=== PATIENT | male | born 1935 | race Caucasian/White ===

== ENCOUNTER 2019-02-04 15:34 | Inpatient (IN) | payer MEDICARE, OTHER ==
[~2019-02-04] VITALS: Ht 167.6 cm; Wt 83.9 kg
--- NOTE | 2019-02-04 15:42 | Emergency Room Report ---
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 And sent to the emergency room upon arrival Patient is found to be severely bradycardic Denies any chest pain or shortness of breath denies any back or flank pain he feels that when he ambulates or stands up the symptoms are worse have been slowly worsening for the past 2 weeks Allergies: Coded Allergies: No Known Allergies (Unverified , 02/04/19) Patient History Past Medical History: see triage record Reviewed Nursing Documentation: PMH: Agreed; PSxH: Agreed Nursing Documentation-PMH Hx Cardiac Problems: Yes - A-fib chronic Review of Systems All Other Systems: negative except mentioned in HPI Physical Exam Vital Signs Date Time Temp Pulse Resp B/P (MAP) Pulse Ox O2 Delivery O2 Flow Rate FiO2 02/04/19 15:21 98.2 40 18 152/72 (98) 98 Room Air Sp02 EP Interpretation: reviewed, normal General Appearance: no apparent distress Head: normocephalic, atraumatic Eyes: bilateral eye PERRL, bilateral eye EOMI ENT: hearing grossly normal, normal pharynx, TMs + canals normal, uvula midline Neck: full range of motion, supple, no meningismus, no bony tend Respiratory: lungs clear, normal breath sounds, no rhonchi, no respiratory distress, no retraction, no accessory muscle use Cardiovascular #1: normal peripheral pulses, no edema, no murmur, bradycardia Gastrointestinal: normal bowel sounds, non tender, soft, no mass, no organomegaly, non-distended, no guarding, no hernia, no pulsatile mass, no rebound Genitourinary: no CVA tenderness Musculoskeletal: normal inspection Neurologic: motor strength/tone normal, 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 tested, oriented x3 , sensory intact, responsive Psychiatric: mood/affect normal Skin: no rash Lymphatic: normal inspection, no adenopathy Procedures Critical Care Time Critical Care Time 40 minutes for multiple re-evaluations dangerously bradycardic heart rate concerning for life-threatening process not including any procedural time Medical Decision Making Diagnostic Impression: Primary Impression: Bradycardia Additional Impressions: Dizziness Sick sinus syndrome ER Course Patient is a fairly complex patient with multiple differential to consideration including but not limited to cardiac cardiopulmonary and vascular emergencies Patient remains awake and alert blood pressure remains appropriate and discussion with cardiology They recommend not providing any further medication at this time Patient further hydrated and admitted inpatient status Labs Test 02/04/19 15:52 White Blood Count 6.5 K/UL (4.8-10.8) Red Blood Count 4.76 M/UL (4.70-6.10) Hemoglobin 14.9 G/DL (14.2-18.0) Hematocrit 42.3 % (42.0-52.0) Mean Corpuscular Volume 89 FL (80-99) Mean Corpuscular Hemoglobin 31.4 PG (27.0-31.0) Mean Corpuscular Hemoglobin Concent 35.3 G/DL (32.0-36.0) Red Cell Distribution Width 11.0 % (11.6-14.8) Platelet Count 168 K/UL (150-450) Mean Platelet Volume 6.4 FL (6.5-10.1) Neutrophils (%) (Auto) 64.3 % (45.0-75.0) Lymphocytes (%) (Auto) 21.6 % (20.0-45.0) Monocytes (%) (Auto) 7.1 % (1.0-10.0) Eosinophils (%) (Auto) 4.7 % (0.0-3.0) Basophils (%) (Auto) 2.3 % (0.0-2.0) Prothrombin Time 12.0 SEC (9.30-11.50) Prothromb Time International Ratio 1.1 (0.9-1.1) Activated Partial Thromboplast Time 27 SEC (23-33) Sodium Level 141 MMOL/L (136-145) Potassium Level 4.2 MMOL/L (3.5-5.1) Chloride Level 108 MMOL/L (98-107) Carbon Dioxide Level 26 MMOL/L (21-32) Anion Gap 7 mmol/L (5-15) Blood Urea Nitrogen 36 mg/dL (7-18) Creatinine 2.0 MG/DL (0.55-1.30) Estimat Glomerular Filtration Rate mL/min (>60) Glucose Level 86 MG/DL (74-106) Calcium Level 8.9 MG/DL (8.5-10.1) Total Bilirubin 1.7 MG/DL (0.2-1.0) Direct Bilirubin 0.3 MG/DL (0.0-0.3) Aspartate Amino Transf (AST/SGOT) 30 U/L (15-37) Alanine Aminotransferase (ALT/SGPT) 55 U/L (12-78) Alkaline Phosphatase 51 U/L (46-116) Troponin I 0.025 ng/mL (0.000-0.056) Pro-B-Type Natriuretic Peptide 3043 pg/mL (0-125) Total Protein 6.8 G/DL (6.4-8.2) Albumin 3.4 G/DL (3.4-5.0) Globulin 3.4 g/dL Albumin/Globulin Ratio 1.0 (1.0-2.7) Lipase 133 U/L (73-393) EKG Diagnostic Results Rate: bradycardiac Rhythm: other - A. fib ST Segments: other - Nonspecific ST and T wave changes Rhythm Strip Diag. Results EP Interpretation: yes Rate: 40 Rhythm: no PVC's, no ectopy, other - Irregularly irregular Chest X-Ray Diagnostic Results Chest X-Ray Diagnostic Results : Chest X-Ray Ordered: Yes # of Views/Limited/Complete: 1 View Indication: Chest Pain EP Interpretation: Yes Interpretation: no consolidation, no effusion, no pneumothorax Impression: No acute disease Electronically Signed by: Sander Qureshi DO Last Vital Signs Date Time Temp Pulse Resp B/P (MAP) Pulse Ox O2 Delivery O2 Flow Rate FiO2 02/04/19 15:21 98.2 40 18 152/72 (98) 98 Room Air Status: improved Disposition: ADMITTED INPATIENT Condition: Critical Sander Qureshi DO Feb 04, 2019 15:42
[2019-02-04 16:04] LABS: BASOPHILS % (AUTO) 2.3 % (0.0-2.0); EOSINOPHILS % (AUTO) 4.7 % (0.0-3.0); HEMATOCRIT 42.3 % (42.0-52.0); HEMOGLOBIN 14.9 G/DL (14.2-18.0); LYMPHOCYTES % (AUTO) 21.6 % (20.0-45.0); MEAN CORPUSCULAR VOLUME 89 FL (80-99); MONOCYTES % (AUTO) 7.1 % (1.0-10.0); NEUTROPHILS % (AUTO) 64.3 % (45.0-75.0); PLATELET COUNT 168 K/UL (150-450); RED BLOOD COUNT 4.76 M/UL (4.70-6.10); WHITE BLOOD COUNT 6.5 K/UL (4.8-10.8)
[2019-02-04 16:16] LABS: ANION GAP 7 mmol/L (5-15); BLOOD UREA NITROGEN 36 mg/dL (7-18); CALCIUM 8.9 MG/DL (8.5-10.1); CARBON DIOXIDE 26 MMOL/L (21-32); CHLORIDE 108 MMOL/L (98-107); INR 1.1 (0.9-1.1); POTASSIUM 4.2 MMOL/L (3.5-5.1); SODIUM 141 MMOL/L (136-145)
[2019-02-04 16:27] LABS: ALANINE AMINOTRANSFERASE 55 U/L (12-78); ALBUMIN 3.4 G/DL (3.4-5.0); ALKALINE PHOSPHATASE 51 U/L (46-116); ASPARTATE AMINO TRANSFERASE 30 U/L (15-37); BILIRUBIN,TOTAL 1.7 MG/DL (0.2-1.0)
[2019-02-04 16:28] LABS: BILIRUBIN,DIRECT 0.3 MG/DL (0.0-0.3)
[2019-02-04 16:49] VITALS: BP 150/59
[2019-02-04 18:16] VITALS: BP 160/72
[2019-02-04] MEDS ORDERED: DUTASTERIDE MC (18:46)
[2019-02-04] MEDS ORDERED: LIDODERM700 M1 TOPIC (18:46)
[2019-02-04] MEDS ORDERED: ABILIFY2 MG ORAL (18:46)
[2019-02-04] MEDS ORDERED: PATADAY2.5 ML OP (18:46)
[2019-02-04] MEDS ORDERED: ASPIRIN81 MG ORAL (18:46)
[2019-02-04] MEDS ORDERED: VASCEPA1 GM PO (18:46)
[2019-02-04] MEDS ORDERED: AVODART0.5 MG ORAL (18:46)
[2019-02-04] MEDS ORDERED: CELEBREX200 MG ORAL (18:46)
[2019-02-04] MEDS ORDERED: ATORVASTATIN CA40 MG ORAL (18:46)
[2019-02-04] MEDS ORDERED: VESICARE5 MG ORAL (18:46)
[2019-02-04] MEDS ORDERED: ELIQUIS2.5 MG PO (18:46)
[2019-02-04] MEDS ORDERED: DONEPEZIL HCL5 M2 ORAL (18:46)
[2019-02-04] MEDS ORDERED: GABAPENTIN300 MG ORAL (18:46)
[2019-02-04 20:00] VITALS: BP 156/80
[2019-02-05] VITALS: BP 140/89
[2019-02-05] MEDS ORDERED: ELIQUIS2.5 MG PO (07:22)
[2019-02-05 07:32] LABS: INR 1.1 (0.9-1.1)
[2019-02-05] MEDS: Heparin 5000 units/ml inj SUBQ SCH ×2 (09:00→20:16)
--- NOTE | 2019-02-05 10:54 | Diagnostic Imaging Report ---
Indication: Shortness of breath, chest pain Technique: One view of the chest Comparison: none Findings: Lungs and pleural spaces are clear. The heart size is upper limits of normal. Impression: No acute process
[2019-02-05 20:00] VITALS: BP 129/48
[2019-02-05 23:56] VITALS: BP 148/80
[2019-02-06] VITALS (12 sets, daily range): BP systolic 124–163; BP diastolic 65–121
[2019-02-06] MEDS: Heparin 5000 units/ml inj SUBQ SCH (09:00)
[2019-02-06 09:41] LABS: BASOPHILS % (AUTO) 1.6 % (0.0-2.0); EOSINOPHILS % (AUTO) 5.4 % (0.0-3.0); HEMATOCRIT 46.3 % (42.0-52.0); HEMOGLOBIN 15.6 G/DL (14.2-18.0); LYMPHOCYTES % (AUTO) 20.5 % (20.0-45.0); MEAN CORPUSCULAR VOLUME 93 FL (80-99); MONOCYTES % (AUTO) 8.5 % (1.0-10.0); PLATELET COUNT 178 K/UL (150-450); RED BLOOD COUNT 4.98 M/UL (4.70-6.10); RED CELL DISTRIBUTION WIDTH 12.2 % (11.6-14.8); WHITE BLOOD COUNT 6.4 K/UL (4.8-10.8)
[2019-02-06 09:49] LABS: ANION GAP 10 mmol/L (5-15); BLOOD UREA NITROGEN 28 mg/dL (7-18); CALCIUM 8.8 MG/DL (8.5-10.1); CARBON DIOXIDE 24 MMOL/L (21-32); CHLORIDE 107 MMOL/L (98-107); CREATININE 1.7 MG/DL (0.55-1.30); POTASSIUM 4.3 MMOL/L (3.5-5.1); SODIUM 141 MMOL/L (136-145)
[2019-02-06 10:00] LABS: ALANINE AMINOTRANSFERASE 52 U/L (12-78); ALBUMIN 3.3 G/DL (3.4-5.0); ALKALINE PHOSPHATASE 52 U/L (46-116); ASPARTATE AMINO TRANSFERASE 25 U/L (15-37); BILIRUBIN,TOTAL 2.2 MG/DL (0.2-1.0)
[2019-02-06 10:04] LABS: BILIRUBIN,DIRECT 0.3 MG/DL (0.0-0.3)
--- NOTE | 2019-02-06 10:04 | Cardiology Progress Note ---
Assessment/Plan Assessment/Plan [id number] sss afib carmen not ghotten eleiquis yuet or today pacer implantation by dr dodd today nkda Objective Last 24 Hour Vital Signs Date Time Temp Pulse Resp B/P (MAP) Pulse Ox O2 Delivery O2 Flow Rate FiO2 02/06/19 08:02 33 02/06/19 08:00 Nasal Cannula 2.0 02/06/19 08:00 97.3 28 20 149/99 (116) 97 02/06/19 04:00 Room Air 02/06/19 04:00 98.0 31 20 138/75 (96) 96 02/06/19 03:47 30 02/06/19 00:00 Room Air 02/05/19 23:58 32 02/05/19 23:56 98.2 32 20 148/80 (102) 97 02/05/19 20:00 34 02/05/19 20:00 Room Air 02/05/19 20:00 98.4 36 20 129/48 (75) 97 02/05/19 16:00 33 02/05/19 16:00 Room Air 02/05/19 12:00 Room Air 02/05/19 12:00 34 Intake and Output 02/05/19 02/06/19 19:00 07:00 Intake Total 720 ml Output Total 2 ml 2 ml Balance 718 ml -2 ml Intake Oral 720 ml Output Urine Total 2 ml 2 ml Laboratory Tests Test 02/06/19 09:30 White Blood Count 6.4 K/UL (4.8-10.8) Red Blood Count 4.98 M/UL (4.70-6.10) Hemoglobin 15.6 G/DL (14.2-18.0) Hematocrit 46.3 % (42.0-52.0) Mean Corpuscular Volume 93 FL (80-99) Mean Corpuscular Hemoglobin 31.3 PG (27.0-31.0) H Mean Corpuscular Hemoglobin Concent 33.7 G/DL (32.0-36.0) Red Cell Distribution Width 12.2 % (11.6-14.8) Platelet Count 178 K/UL (150-450) Mean Platelet Volume 6.7 FL (6.5-10.1) Neutrophils (%) (Auto) 64.0 % (45.0-75.0) Lymphocytes (%) (Auto) 20.5 % (20.0-45.0) Monocytes (%) (Auto) 8.5 % (1.0-10.0) Eosinophils (%) (Auto) 5.4 % (0.0-3.0) H Basophils (%) (Auto) 1.6 % (0.0-2.0) Activated Partial Thromboplast Time 29 SEC (23-33) Sodium Level 141 MMOL/L (136-145) Potassium Level 4.3 MMOL/L (3.5-5.1) Chloride Level 107 MMOL/L (98-107) Carbon Dioxide Level 24 MMOL/L (21-32) Anion Gap 10 mmol/L (5-15) Blood Urea Nitrogen 28 mg/dL (7-18) H Creatinine 1.7 MG/DL (0.55-1.30) H Estimat Glomerular Filtration Rate mL/min (>60) Glucose Level 101 MG/DL (74-106) Calcium Level 8.8 MG/DL (8.5-10.1) Total Bilirubin Pending Aspartate Amino Transf (AST/SGOT) Pending Alanine Aminotransferase (ALT/SGPT) Pending Alkaline Phosphatase Pending Total Protein Pending Albumin Pending Globulin Pending Scooby Crockett MD Feb 06, 2019 10:04
--- NOTE | 2019-02-06 11:13 | Pre-Procedure Note/Attestation ---
Pre-Procedure Note/Attestation Complete Prior to Procedure Planned Procedure: left Procedure Narrative: permanent pacemaker implant Indications for Procedure Pre-Operative Diagnosis: high grade AV block, permanent AF Attestation I attest that I discussed the nature of the procedure; its benefits; risks and complications; and alternatives (and the risks and benefits of such alternatives ), prior to the procedure, with the patient (or the patient's legal territory sales representative). I attest that, if there was a reasonable possibility of needing a blood transfusion, the patient (or the patient's legal territory sales representative) was given the [facility] standardized written summary, pursuant to the Alfonso Gibbon Blood Safety Act ([place] Health and Safety Code # 1645, as amended). I attest that I re-evaluated the patient just prior to the surgery and that there has been no change in the patient's H&P, except as documented below: Ophelia Solomon MD Feb 06, 2019 11:13
--- NOTE | 2019-02-06 11:19 | Consultation ---
Consult Note Consult Note Cardiac EP #[id number] Ophelia oSlomon MD Feb 06, 2019 11:19
[2019-02-06] MEDS ORDERED: Bupivacaine 0.25% Inj 30ml INJ ONE (13:00)
[2019-02-06] MEDS ORDERED: Bacitracin 50000 Units Vial ONE (13:00)
[2019-02-06] MEDS ORDERED: Isovue-M 300 15ml INJ ONE (13:00)
[2019-02-06] MEDS ORDERED: Lidocaine 1% Plain 30 ml INJ ONE ×2 (13:00→13:21)
[2019-02-06] MEDS ORDERED: LR 1000ml 1,000 ML IVLG SCH (13:16)
[2019-02-06] MEDS ORDERED: Sodium Chloride 10ml vial INJ ONE (13:21)
[2019-02-06] MEDS ORDERED: Dexamethasone 4mg/ml vial ONE (13:21)
[2019-02-06] MEDS ORDERED: Propofol 200mg/20ml IV ONE (13:21)
--- NOTE | 2019-02-06 13:26 | Anethesia Preoperative Eval ---
Anesthesia Pre-op PMH/ROS General Date of Evaluation: Feb 06, 2019 Time of Evaluation: 13:26 Anesthesiologist: Joya ASA Score: ASA 4 - Emergency Mallampati Score Class I : Soft palate, uvula, fauces, pillars visible Class II: Soft palate, uvula, fauces visible Class III: Soft palate, base of uvula visible Class IV: Only hard plate visible Mallampati Classification: Class III Surgeon: Juanito Diagnosis: Afib, Bradycardia Surgical Procedure: Permanent Pacemaker Anesthesia History: none Family History: no anesthesia problems Allergies: Coded Allergies: No Known Allergies (Unverified , 02/04/19) Medications: see eMAR Patient NPO?: Yes NPO Date: Feb 06, 2019 NPO Time: 0000 Past Medical History Cardiovascular: Reports: HTN, CAD, arrhythmia - Bradycardia Other: obesity - BMI 30 Anesthesia Pre-op Phys. Exam Physician Exam Last Vital Signs Date Time Temp Pulse Resp B/P (MAP) Pulse Ox O2 Delivery O2 Flow Rate FiO2 02/06/19 13:12 29 02/06/19 12:09 Nasal Cannula 2.0 02/06/19 12:00 97.3 20 155/68 (97) 97 Constitutional: NAD Neurologic: CN 2-12 intact Cardiovascular: RRR Respiratory: CTA Airway Exam Mallampati Score: Class III MO: limited ROM: limited Teeth: missing, intact Anesthesia Pre-op A/P Labs Hematology Test 02/06/19 09:30 White Blood Count 6.4 K/UL (4.8-10.8) Red Blood Count 4.98 M/UL (4.70-6.10) Hemoglobin 15.6 G/DL (14.2-18.0) Hematocrit 46.3 % (42.0-52.0) Mean Corpuscular Volume 93 FL (80-99) Mean Corpuscular Hemoglobin 31.3 PG (27.0-31.0) H Mean Corpuscular Hemoglobin Concent 33.7 G/DL (32.0-36.0) Red Cell Distribution Width 12.2 % (11.6-14.8) Platelet Count 178 K/UL (150-450) Mean Platelet Volume 6.7 FL (6.5-10.1) Neutrophils (%) (Auto) 64.0 % (45.0-75.0) Lymphocytes (%) (Auto) 20.5 % (20.0-45.0) Monocytes (%) (Auto) 8.5 % (1.0-10.0) Eosinophils (%) (Auto) 5.4 % (0.0-3.0) H Basophils (%) (Auto) 1.6 % (0.0-2.0) Coagulation Test 02/06/19 09:30 Activated Partial Thromboplast Time 29 SEC (23-33) Chemistry Test 02/06/19 09:30 Sodium Level 141 MMOL/L (136-145) Potassium Level 4.3 MMOL/L (3.5-5.1) Chloride Level 107 MMOL/L (98-107) Carbon Dioxide Level 24 MMOL/L (21-32) Anion Gap 10 mmol/L (5-15) Blood Urea Nitrogen 28 mg/dL (7-18) H Creatinine 1.7 MG/DL (0.55-1.30) H Estimat Glomerular Filtration Rate mL/min (>60) Glucose Level 101 MG/DL (74-106) Calcium Level 8.8 MG/DL (8.5-10.1) Total Bilirubin 2.2 MG/DL (0.2-1.0) H Direct Bilirubin 0.3 MG/DL (0.0-0.3) Aspartate Amino Transf (AST/SGOT) 25 U/L (15-37) Alanine Aminotransferase (ALT/SGPT) 52 U/L (12-78) Alkaline Phosphatase 52 U/L (46-116) Total Protein 6.7 G/DL (6.4-8.2) Albumin 3.3 G/DL (3.4-5.0) L Globulin 3.4 g/dL Albumin/Globulin Ratio 1.0 (1.0-2.7) Risk Assessment & Plan Assessment: ASA 4E Plan: TIVA Status Change Before Surgery: No Pre-Antibiotics Dru Grams Ancef IV Given Within 1 Hr of Incision: Yes Time Given: 13:46 Cristobal Hinson MD Feb 06, 2019 13:25
[2019-02-06] MEDS ORDERED: Labetalol 5mg/ml 20ml vial IV PRN ×2 (13:30→16:00)
[2019-02-06] MEDS ORDERED: LORazepam Inj 2mg/ml 1ml IV PRN (13:30)
[2019-02-06] MEDS ORDERED: Neostigmine 1mg/ml 10ml Inj ONE (13:30)
[2019-02-06] MEDS ORDERED: Midazolam 2mg/2ml Inj IVP PRN (13:30)
[2019-02-06] MEDS ORDERED: Hydromorphone 0.5mg/0.5ml inj IVP PRN (13:30)
[2019-02-06] MEDS ORDERED: DiphenhydrAMINE 50mg/ml Inj IVP PRN (13:30)
[2019-02-06] MEDS ORDERED: Acetaminophen (Non formulary) 100 ML IV ONE (13:30)
[2019-02-06] MEDS ORDERED: fentaNYL 100 mcg/2 mL IV PRN (13:30)
[2019-02-06] MEDS ORDERED: LR 1000ml ONE (13:30)
[2019-02-06] MEDS ORDERED: Rocuronium Bromide 50mg/5ml Inj IV ONE (13:30)
[2019-02-06] MEDS ORDERED: HYDROcodone/Acetamin 7.5/325 tab ORAL PRN (13:30)
[2019-02-06] MEDS ORDERED: Meperidine 50mg/ml Inj(FOR RIGORS ONLY) IVP PRN (13:30)
[2019-02-06] MEDS ORDERED: HYDROcodone/Acetamin 5/325 tab ORAL PRN ×2 (13:30→16:00)
[2019-02-06] MEDS ORDERED: Atropine Sulfate 0.4mg/ml inj IVP PRN (13:30)
[2019-02-06] MEDS ORDERED: oxyCODONE HCL/Acetaminophen 5/325mg ORAL PRN (13:30)
[2019-02-06] MEDS ORDERED: Metoclopramide 10mg/2ml Inj IVP PRN (13:30)
[2019-02-06] MEDS ORDERED: Glycopyrrolate 0.2mg/ml 1ml Vial ONE ×2 (13:47→15:07)
--- NOTE | 2019-02-06 13:52 | Cardiology Report ---
APPROVED REPORT EKG Measurement Heart [id number] <Conclusion> A. Flutter Right bundle branch block Left anterior fascicular block Bifascicular block Left ventricular hypertrophy with repolarization abnormality Abnormal ECG
[2019-02-06] MEDS ORDERED: Atropine Sulfate 0.4mg/ml inj ONE (13:53)
[2019-02-06 14:38] LABS: ANION GAP 11 mmol/L (5-15); BLOOD UREA NITROGEN 29 mg/dL (7-18); CALCIUM 8.8 MG/DL (8.5-10.1); CARBON DIOXIDE 24 MMOL/L (21-32); CHLORIDE 106 MMOL/L (98-107); CREATININE 1.9 MG/DL (0.55-1.30); POTASSIUM 4.5 MMOL/L (3.5-5.1); SODIUM 141 MMOL/L (136-145)
[2019-02-06] MEDS ORDERED: NS Irrig 1000ml IRRIG ONE (15:05)
--- NOTE | 2019-02-06 15:48 | Operative Note - PDOC ---
Operative Note Operative Note Date of Operation/Procedure: Feb 06, 2019 Pre-op Diagnosis: high grade AV block, permanent AF Procedure: permanent pacemaker - single chamber temp pacemaker and central line Post-op Diagnosis: sinus node disease and high grade av block Post-op Diagnosis: same as pre-op Operative Findings: consistent w/pre-op dx studies Anesthesiologist: Dr Hinson Anesthesia: general Specimen: none Complications: none Condition: stable Estimated Blood Loss: minimal Drains: none Implant(s) used?: Yes Indications for Procedure high grade AV block Description of Procedure dictation [id number] Ophelia Solomon MD Feb 06, 2019 15:48
--- NOTE | 2019-02-06 16:03 | Immediate Post-Op Evaluation ---
Immediate Post-Op Evalulation Immediate Post-Op Evalulation Procedure: Permanent Pacemaker Date of Evaluation: Feb 06, 2019 Time of Evaluation: 16:13 IV Fluids: 900 LR Blood Products: 0 Estimated Blood Loss: 50 Urinary Output: 0 Blood Pressure Systolic: 162 Blood Pressure Diastolic: 78 Pulse Rate: 60 Respiratory Rate: 18 O2 Sat by Pulse Oximetry: 100 Temperature (Fahrenheit): 98.4 Pain Score (1-10): 2 Nausea: No Vomiting: No Complications 0 Patient Status: awake, reacts, patent, extubated, none Hydration Status: adequate Dru Grams Ancef IV Given Within 1 Hr of Incision: Yes Time Given: 13:46 Cristobal Hinson MD Feb 06, 2019 16:03
--- NOTE | 2019-02-06 16:04 | 48 Hour Post Anesthesia Eval ---
Post Anesthesia Evaluation Procedure: Permanent Pacemaker Date of Evaluation: Feb 06, 2019 Time of Evaluation: 18:34 Blood Pressure Systolic: 147 0: 74 Pulse Rate: 60 Respiratory Rate: 18 Temperature (Fahrenheit): 98.4 O2 Sat by Pulse Oximetry: 100 Airway: patent Nausea: No Vomiting: No Pain Intensity: 2 Hydration Status: adequate Cardiopulmonary Status: Stable Mental Status/LOC: patient returned to baseline Follow-up Care/Observations: 0 Post-Anesthesia Complications: 0 Follow-up care needed: N/A Cristobal Hinson MD Feb 06, 2019 16:04
--- NOTE | 2019-02-06 17:19 | Diagnostic Imaging Report ---
EXAM: XR Chest, 1 View CLINICAL HISTORY: S/P PACER TECHNIQUE: Frontal view of the chest. COMPARISON: No relevant prior studies available. FINDINGS: Lungs: Low lung volumes with bronchovascular crowding. No consolidation, pleural effusion, or pneumothorax. Pleural space: See above. Heart: Unremarkable. No cardiomegaly. Mediastinum: Unremarkable. Bones/joints: Unremarkable. Tubes, lines and devices: New left chest pacer. IMPRESSION: 1. New left chest pacer. 2. Low lung volumes with bronchovascular crowding. 3. Otherwise no acute cardiopulmonary disease. 4. If there is continued concern, recommend frontal and lateral chest radiographs or CT.
[2019-02-06] MEDS ORDERED: Eliquis 5mg tablet ORAL SCH (18:00)
[2019-02-06] MEDS ORDERED: Lidocaine 2% Visc 15ml soln ORAL PRN (18:00)
[2019-02-06] MEDS ORDERED: Heparin 5000 units/ml inj SUBQ SCH (21:00)
--- NOTE | 2019-02-06 21:15 | Consultation ---
DATE OF CONSULTATION: 02/06/2019 CARDIAC ELECTROPHYSIOLOGY CONSULT CONSULTING PHYSICIAN: Ophelia Solomon M.D. REQUESTING PHYSICIAN: Scooby Crockett M.D. REASON FOR CONSULT: Bradycardia. HISTORY OF PRESENT ILLNESS: Mr. Stewart is an 83-year-old [place]ijani man (history obtained through a park interpreter) with a history of permanent atrial fibrillation, who was transferred to the emergency room by paramedics with complaints of dizziness and lightheadedness. He has had symptoms progressing over the two weeks prior to admission. He has no chest pains or dyspnea. He has not had ruben syncope. His pulse in the emergency room was 40, atrial fibrillation. He was admitted for further treatment. MEDICATIONS: At home, Eliquis 2.5 mg twice daily, Abilify 2 mg daily, aspirin 81 mg daily, atorvastatin 40 mg daily, Celebrex 200 mg daily, Aricept 5 mg daily, Avodart 0.5 mg daily, gabapentin 300 mg at bedtime, Vascepa 1 g daily, Lidoderm patch daily, VESIcare 5 mg daily. ALLERGIES: No known drug allergies. PAST MEDICAL HISTORY: As noted above. Also, history of hyperlipidemia. SOCIAL HISTORY: The patient is a nonsmoker and has no history of alcohol abuse. PHYSICAL EXAMINATION: VITAL SIGNS: Blood pressure is 149/99, pulse 31, irregularly irregular, respirations 20, afebrile, oxygen saturation 97% on room air. GENERAL: Alert, well-developed white male, in no acute distress. HEENT: Normocephalic and atraumatic. Pupils are equal, round, and reactive to light. Sclerae anicteric. Oral mucosa are moist. NECK: Supple. There is no jugular venous distention. LUNGS: Clear to auscultation. No respiratory distress. HEART: Irregularly irregular, bradycardic S1-S2 with no murmur or S3. ABDOMEN: Soft, nontender, obese. No palpable mass. EXTREMITIES: No cyanosis, clubbing, or edema. SKIN: No rashes or lesions. LABORATORY DATA: Hemoglobin 15.6, white blood count 6400. INR 1.1. Potassium 4.3, BUN 28, and creatinine 1.7. Troponin 0.0250. EKG showed atrial fibrillation with slow ventricular rate. Chest x-ray shows clear lung lara. No cardiomegaly. ASSESSMENT AND RECOMMENDATIONS: Mr. Stewart is an 83-year-old man with a history of permanent atrial fibrillation and hyperlipidemia, who presents with a 2-week history of progressively worsening dizziness and is found to have high-grade AV block. Heart rates in the 20s to 30s and atrial fibrillation, he does not appear with evidence for an acute coronary syndrome based on history or troponin levels or EKG. He is not on any medications, which would cause bradycardia. 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 Permanent pacemaker is recommended. This procedure was discussed with him including potential risks and benefits. He understands and wishes to proceed. The procedure will be scheduled for today. Ophelia Solomon M.D. DR: ROXANA JOB#: [id number] CC:
--- NOTE | 2019-02-06 21:15 | History and Physical Report ---
DATE OF ADMISSION: 02/04/2019 CARDIAC CONSULTATION REASON FOR EVALUATION: Management of atrial fibrillation and bradycardia. HISTORY OF PRESENT ILLNESS: This is a patient of Dr. Guthrie, who is admitted to the hospital because of weakness. He saw me in the office on night and was noted to be severely bradycardic and sent to the emergency room at [facility]. Heart rate remains in the 20s, and therefore will be having his pacemaker implantation by Dr. Solomon today. All the information from the patient was obtained from the patient directly through a Marshallese spanish medical interpreter over the phone. The patient tells me he has not really had any chest pain or shortness of breath. No PND. No orthopnea. He has been noticing over the past three weeks that he has been basically weak and dizzy and was seen and was just found out that this is related to his heart. He has been very fatigued. He has to lie down most of the time and he feels like that. He has not passed out or come close to passing out. PAST MEDICAL HISTORY: Positive for history of atrial fibrillation. According to the chart, the patient denies any diabetes, high blood pressure, high cholesterol, heart attack, cancer, stroke, hepatitis, tuberculosis, asthma, emphysema, ulcers, kidney problems, liver problems, thyroid problems, anemia, arthritis, HIV, AIDS, or blood clots, or prostate problems. He does have a history of some kind of a cyst in his kidneys. ALLERGIES: He is not allergic to any medication. SOCIAL HISTORY: He smoked up to approximately 3 years ago. He drinks alcoholic beverages, but only 3 or 4 times, decreased from 5 or 6 times a week and no drug use. REVIEW OF SYSTEMS: GASTROINTESTINAL: He denies. GENITOURINARY: He denies. PULMONARY: He denies. CONSTITUTIONAL: He denies. NEUROLOGIC: He denies. PHYSICAL EXAMINATION: GENERAL: Shows to be overweight elderly gentleman, in no respiratory distress. NECK: Supple. No jugular venous distention. LUNGS: Appear to be clear to auscultation and percussion. CARDIAC: Bradycardic, almost regular. No heaves or thrills. ABDOMEN: Soft and obese. Positive bowel sounds. EXTREMITIES: There is no edema. NEUROLOGICAL: He is awake, alert, and responsive. LABORATORY VALUES: INR 1.1 and PTT of 27. White count of 6.4, hemoglobin 15.6, and platelet count of 178,000. Sodium is 141, potassium 4.3, chloride 107, bicarb 24, BUN of 28, creatinine 1.7, and glucose of 101. Calcium is 8.8. Troponin of 0.0512. TSH of 2.276. A chest x-ray was performed on 02/04/2019 showing lungs and pleural spaces to be clear. His telemetry data shows flutter pattern, and in fact, his EKG shows flutter pattern with heart rates down to the 40s. A left anterior fascicular block is noted, may be some voltage criteria for left ventricular hypertrophy, some nonspecific T-wave abnormalities. ASSESSMENT: 1. Permanent atrial fibrillation. 2. Bradycardia suggestive of sick sinus syndrome. 3. History of tobacco use disorder. PLAN: This patient was seen and has been admitted because of the bradycardia. I have contacted Dr. Solomon, who will arrange for urgent placement of a pacemaker. I did briefly discuss the placement of the pacemaker with the patient indicating the possibility of infection, bleeding, damage to the vessels of the heart. Dr. Solomon will obtain a consent based on her own experience from the patient directly as well. The patient is NPO. She has not had any anticoagulation according to the nursing staff yesterday or today with Eliquis and we will have the procedure done today. Scooby Crockett M.D. DR: GABI JOB#: [id number] CC:
[2019-02-06] MEDS: ceFAZolin sod 1 GM in D5W 55 ML IV SCH (22:11)
[2019-02-07] VITALS (13 sets, daily range): BP systolic 133–158; BP diastolic 64–126
--- NOTE | 2019-02-07 01:00 | Operative Note - Dictated ---
DATE OF OPERATION: 02/06/2019 SURGEON: Ophelia Solomon M.D. PROCEDURE: Temporary transvenous pacemaker and permanent single-chamber pacemaker. INDICATION: Permanent atrial fibrillations and asystolic arrest. CLINICAL HISTORY: The patient is an 83-year-old man, who presented with 2-week history of dizziness. He has permanent atrial fibrillation and was found to have severe bradycardia rates in the 30s with no reversible cause identified. On anesthesia induction, he had an asystolic cardiac arrest and required external transcutaneous pacing until the temporary and permanent pacemaker was placed. ANESTHESIA: General endotracheal. The implanted pacemaker is a [employer], PM 1272, serial number [id number]. The lead is a [employer] [id number], serial number [id number] pacing and sensing in the ventricle. The sensed R waves from the temporary transvenous wire were 7 millivolts, lead impedance 540 ohms, pacing threshold 0.5 volts at 0.4 milliseconds. DESCRIPTION OF PROCEDURE: The patient was brought to the operating room, received sedation as per the anesthesiologist, Dr. Hinson. On anesthesia induction, the patient who had been significantly bradycardic in atrial fibrillation at a prolonged asystole, he was transcutaneously paced, intubated, and mechanically ventilated. We then prepped the right groin quickly and placed a 5-Maori introducer sheath and through this, a bipolar temporary pacing wire was advanced to the right ventricular apex. This was used for pacing during the permanent pacemaker insertion. The temporary wire was secured to the skin and a Tegaderm dressing applied. The left chest was then sterilely prepped and draped in the usual manner. The skin and underlying soft tissues over the left deltopectoral groove were infiltrated with 1% Xylocaine with local anesthetic. An incision was made of about 3 cm in the left deltopectoral groove and this was carried down to the prepectoral fascia using blunt and Bovie dissection. The left cephalic vein was isolated. The proximal loop and distal tie of silk suture were placed. The vein was incised and a guidewire advanced under fluoroscopy into the low right atrium. The ventricular lead was then passed directly through the vein positioned in the right ventricular apex under fluoroscopy. The screw was advanced under fluoroscopy. The above pacing and sensing thresholds were obtained. There was no diaphragmatic stimulation with pacing at 10 volts. The lead was secured with two nonabsorbable sutures to the underlying fascia via the suture sleeve. The subcutaneous pocket was created using blunt and Bovie dissection. The pocket was flushed with an antibiotic solution. The pacemaker generator was brought to the field. The ventricular lead was attached. The setscrews tightened and checked. The lead in placed into the subcutaneous pocket with the excess lead coiled beneath the generator. The incision was then closed in 3 layers with 2-0 and 4-0 Monocryl absorbable suture and a sterile dressing was applied. The generator prior to closure of the incision was anchored to the underlying fascia with an soak nonabsorbable suture. The temporary wire was removed. At the end of the procedure and the introducer as well, the patient was extubated and transferred to the recovery area in stable condition. Ophelia Solomon M.D. DR: LAURA JOB#: [id number] CC:
[2019-02-07] MEDS: ceFAZolin sod 1 GM in D5W 55 ML IV SCH (05:46)
[2019-02-07 07:01] LABS: ANION GAP 13 mmol/L (5-15); BLOOD UREA NITROGEN 31 mg/dL (7-18); CALCIUM 9.2 MG/DL (8.5-10.1); CARBON DIOXIDE 22 MMOL/L (21-32); CHLORIDE 107 MMOL/L (98-107); CREATININE 1.7 MG/DL (0.55-1.30); POTASSIUM 4.2 MMOL/L (3.5-5.1); SODIUM 142 MMOL/L (136-145)
[2019-02-07 07:03] LABS: HEMOGLOBIN 15.2 G/DL (14.2-18.0); MEAN CORPUSCULAR VOLUME 92 FL (80-99); PLATELET COUNT 186 K/UL (150-450); RED CELL DISTRIBUTION WIDTH 11.9 % (11.6-14.8); WHITE BLOOD COUNT 7.4 K/UL (4.8-10.8)
[2019-02-07] MEDS ORDERED: D5 1/2NS 1000ml IV ONE (10:45)
[2019-02-07] MEDS ORDERED: Tubing IV Secondary IV ONE (10:45)
[2019-02-07] MEDS ORDERED: NS 275ml ONE (10:45)
--- NOTE | 2019-02-07 13:42 | Cardiology Progress Note ---
Assessment/Plan Assessment/Plan 1. Permanent atrial fibrillation. 2. Bradycardia suggestive of sick sinus syndrome. 3. History of tobacco use disorder. resume eliquis dose to age adn renal function ambulate with assistance home tomorrow if ok with wlkign instructed to to allo left arm above shoulder level labs ok d/w family at bedside d/w rn d/w dr dodd interrogated device look ok Subjective Cardiovascular: Denies: chest pain, lightheadedness Respiratory: Denies: shortness of breath Gastrointestinal/Abdominal: Denies: abdominal pain Genitourinary: Denies: burning Subjective some itching at site of pacer otehrwise no sx wanst to get up to walk Objective Last 24 Hour Vital Signs Date Time Temp Pulse Resp B/P (MAP) Pulse Ox O2 Delivery O2 Flow Rate FiO2 02/07/19 12:00 97.5 61 19 138/70 (92) 98 02/07/19 12:00 Nasal Cannula 2.0 02/07/19 11:00 60 15 142/68 (92) 97 02/07/19 10:35 97.6 02/07/19 10:00 65 16 158/65 (96) 94 02/07/19 09:00 69 17 147/64 (91) 98 02/07/19 08:00 97.6 64 18 151/89 (109) 97 02/07/19 08:00 71 02/07/19 08:00 Nasal Cannula 2.0 02/07/19 07:00 57 18 136/78 (97) 93 02/07/19 06:00 56 20 138/102 (114) 94 02/07/19 05:00 57 16 157/126 (136) 97 02/07/19 04:00 98.0 59 18 153/111 (125) 98 02/07/19 04:00 Nasal Cannula 2.0 02/07/19 04:00 60 02/07/19 03:00 61 14 154/84 (107) 95 02/07/19 02:00 56 16 140/69 (92) 99 02/07/19 01:00 57 17 133/75 (94) 95 02/07/19 00:00 Nasal Cannula 2.0 02/07/19 00:00 60 02/07/19 00:00 98.0 56 14 155/105 (122) 95 02/06/19 23:00 58 16 141/121 (128) 95 02/06/19 22:00 59 18 125/100 (108) 97 02/06/19 21:00 63 17 124/65 (84) 94 02/06/19 20:00 Nasal Cannula 2.0 02/06/19 20:00 72 02/06/19 20:00 97.6 62 21 145/75 (98) 97 02/06/19 19:00 62 16 162/103 (122) 98 02/06/19 18:00 60 14 148/78 (101) 97 02/06/19 17:00 60 15 163/76 (105) 99 02/06/19 16:04 60 18 100 02/06/19 16:03 60 18 100 02/06/19 16:00 60 02/06/19 16:00 Nasal Cannula 2.0 02/06/19 16:00 60 16 163/76 (105) 98 02/06/19 15:45 97.6 60 17 146/71 (96) 97 General Appearance: no apparent distress Neck: supple Cardiovascular: normal rate, regular rhythm Respiratory/Chest: lungs clear, normal breath sounds Abdomen: normal bowel sounds, non tender, soft Extremities: no swelling Intake and Output 02/06/19 02/07/19 19:00 07:00 Intake Total 200 ml 255 ml Output Total 1150 ml Balance 200 ml -895 ml Intake Oral 200 ml 200 ml IV Total 55 ml Output Urine Total 1150 ml # Voids 5 Laboratory Tests Test 02/06/19 14:15 02/07/19 05:00 Sodium Level 141 MMOL/L (136-145) 142 MMOL/L (136-145) Potassium Level 4.5 MMOL/L (3.5-5.1) 4.2 MMOL/L (3.5-5.1) Chloride Level 106 MMOL/L (98-107) 107 MMOL/L (98-107) Carbon Dioxide Level 24 MMOL/L (21-32) 22 MMOL/L (21-32) Anion Gap 11 mmol/L (5-15) 13 mmol/L (5-15) Blood Urea Nitrogen 29 mg/dL (7-18) H 31 mg/dL (7-18) H Creatinine 1.9 MG/DL (0.55-1.30) H 1.7 MG/DL (0.55-1.30) H Estimat Glomerular Filtration Rate mL/min (>60) mL/min (>60) Glucose Level 104 MG/DL (74-106) 129 MG/DL (74-106) H Calcium Level 8.8 MG/DL (8.5-10.1) 9.2 MG/DL (8.5-10.1) White Blood Count 7.4 K/UL (4.8-10.8) Red Blood Count 4.80 M/UL (4.70-6.10) Hemoglobin 15.2 G/DL (14.2-18.0) Hematocrit 44.0 % (42.0-52.0) Mean Corpuscular Volume 92 FL (80-99) Mean Corpuscular Hemoglobin 31.6 PG (27.0-31.0) H Mean Corpuscular Hemoglobin Concent 34.4 G/DL (32.0-36.0) Red Cell Distribution Width 11.9 % (11.6-14.8) Platelet Count 186 K/UL (150-450) Mean Platelet Volume 7.3 FL (6.5-10.1) Neutrophils (%) (Auto) % (45.0-75.0) Lymphocytes (%) (Auto) % (20.0-45.0) Monocytes (%) (Auto) % (1.0-10.0) Eosinophils (%) (Auto) % (0.0-3.0) Basophils (%) (Auto) % (0.0-2.0) Differential Total Cells Counted 100 Neutrophils % (Manual) 92 % (45-75) H Lymphocytes % (Manual) 5 % (20-45) L Monocytes % (Manual) 3 % (1-10) Eosinophils % (Manual) 0 % (0-3) Basophils % (Manual) 0 % (0-2) Band Neutrophils 0 % (0-8) Platelet Estimate Adequate Platelet Morphology Normal Red Blood Cell Morphology Normal Scooby Crockett MD Feb 07, 2019 13:42
[2019-02-07] MEDS ORDERED: Eliquis 5mg tablet ORAL SCH (14:00)
[2019-02-07] MEDS ORDERED: Eliquis 2.5mg tablet ORAL SCH (14:00)
[2019-02-07 15:44] LABS: INR 1.1 (0.9-1.1)
[2019-02-07] MEDS ORDERED: HYDROcodone/Acetamin 5/325 tab ORAL PRN (16:00)
[2019-02-07] MEDS: Eliquis 2.5mg tablet ORAL SCH (17:46)
[2019-02-07] MEDS ORDERED: Lidocaine 2% Visc 15ml soln ORAL PRN (18:00)
[2019-02-08 08:00] VITALS: BP 133/79
[2019-02-08] MEDS: Eliquis 2.5mg tablet ORAL SCH (08:32)
--- NOTE | 2019-02-11 08:20 | Discharge Summary ---
Discharge Summary Discharge Summary _ DATE OF ADMISSION: 02/04/2019 DATE OF DISCHARGE: 02/08/2019 DISCHARGED BY: Dr. Crockett REASON FOR ADMISSION: 83 years old male with past medical history of atrial fibrillation presented to the hospital for evaluation of bradycardia. Patient was in the integrated circuit fabricator office and reported 2-week history of progressively worsening dizziness . Patient was found to be severely bradycardic . Patient subsequently was sent to emergency room at [facility]. Patient was severely bradycardic . Patient remained awake . EKG showed atrial flutter with slow ventricular rate. Chest x-ray revealed no evidence of acute cardiopulmonary pathology. Troponin was negative, INR 1.1 . Patient admitted for bradycardia. CONSULTANTS: cardiac tester wafer substrate Dr. Solomon [facility] COURSE: Patient admitted to direct observational unit. Bag Adjuster contacted for urgent pacemaker placement. Patient was kept n.p.o. Patient did not have any anticoagulation for two days prior to procedure. Bag Adjuster seen and evaluated patient . Patient subsequently undergone temporary transvenous pacemaker and permanent single-chamber pacemaker Pain management was addressed as needed. Left arm was kept above shoulder level. Patient was able to ambulate with assistance. Interrogation of pacemaker revealed normal functioning. Patient was able to ambualte with assistance. Eliquis was resumed with dosing accordingly to age and renal function. Home medication continued. Patient clinically stabilized and was ready for discharge home . FINAL DIAGNOSES: Sinus bradycardia Sick sinus syndrome High-grade AV block Status post permanent pacemaker placement Permanent atrial fibrillation History of tobacco use disorder DISCHARGE MEDICATIONS: See Medication Reconciliation list. DISCHARGE INSTRUCTIONS: Patient was discharged home. Follow-up with integrated circuit fabricator/tester wafer substrate in 1 week. I have been assigned to dictate discharge summary for this account. I was not involved in the patient's management. Candelaria Koroma NP Feb 11, 2019 08:20
== END 2019-02-08 12:35 | disposition home or self-care (01) | DRG 242 ==
LOC: EDBD 15:34 → EDBEDREQ 15:40 → EMR 17:06 → 2W 17:10 → EDBEDREQ 17:57 → 2W 22:25 → ICU 02-06 15:00 → 2W 02-07 14:20
PROC: 0JH604Z Insertion of Pacemaker, Single Chamber into Chest Subcutaneous Tissue and Fascia, Open Approach (ICD-10-PCS; principal; 2019-02-06 13:00)
PROC: 02HK3JZ Insertion of Pacemaker Lead into Right Ventricle, Percutaneous Approach (ICD-10-PCS; principal; 2019-02-06 13:00)
DX: I49.5 Sick sinus syndrome (principal); I46.9 Cardiac arrest, cause unspecified; I48.21 Permanent atrial fibrillation; I44.39 Other atrioventricular block; F17.200 Nicotine dependence, unspecified, uncomplicated; Z79.01 Long term (current) use of anticoagulants
CPT/HCPCS: 36415; 71045; 76000; 80048; 80053; 82248; 83690; 83880; 84443; 84484; 85007; 85025; 85610; 85730; 93005; 99291; J2250; J2405; J2710

== ENCOUNTER 2019-07-07 11:39 | Outpatient (RCR) | payer MEDICARE, OTHER ==
[~2019-07-07 11:39] MED LIST: ABILIFY2 MG ORAL; ASPIRIN81 MG ORAL; ATORVASTATIN CA40 MG ORAL; AVODART0.5 MG ORAL; CELEBREX200 MG ORAL; DONEPEZIL HCL5 M2 ORAL; DUTASTERIDE MC; ELIQUIS2.5 MG PO; GABAPENTIN300 MG ORAL; LIDODERM700 M1 TOPIC; PATADAY2.5 ML OP; VASCEPA1 GM PO; VESICARE5 MG ORAL
== END 2019-07-25 | disposition home or self-care (01) ==
LOC: WCC 11:39
DX: L98.493 Non-pressure chronic ulcer of skin of other sites with necrosis of muscle (principal); L66.4 Folliculitis ulerythematosa reticulata; I11.9 Hypertensive heart disease without heart failure; E78.5 Hyperlipidemia, unspecified; I25.10 Atherosclerotic heart disease of native coronary artery without angina pectoris; Z95.0 Presence of cardiac pacemaker
CPT/HCPCS: 11043; 87070; 87181; 87205

== ENCOUNTER 2019-07-28 10:43 | Outpatient (RCR) | payer MEDICARE, OTHER | END 2019-08-24 | disposition home or self-care (01) | LOC: WCC 10:43 | DX: L98.493 Non-pressure chronic ulcer of skin of other sites with necrosis of muscle (principal); L66.4 Folliculitis ulerythematosa reticulata; I11.9 Hypertensive heart disease without heart failure; I25.10 Atherosclerotic heart disease of native coronary artery without angina pectoris; E78.5 Hyperlipidemia, unspecified; Z95.0 Presence of cardiac pacemaker | CPT/HCPCS: 11043; G0463 ==